=== PATIENT | male | born 1985 | race Caucasian/White ===

== ENCOUNTER 2017-12-05 10:42 | Emergency (ER) | payer SELFPAY ==
[~2017-12-05] VITALS: Ht 180.3 cm; Wt 68.2 kg
[2017-12-05 12:32] VITALS: BP 118/69
[2017-12-05] MEDS ORDERED: VALIUM5 MG PO (13:12)
[2017-12-05] MEDS ORDERED: TORADOL10 MG PO (13:12)
[2017-12-05] MEDS ORDERED: LIDODERM 5% P1 PATCH TD (13:12)
== END 2017-12-05 13:30 | disposition home or self-care (01) ==
LOC: EME 10:42
DX: S39.012A Strain of muscle, fascia and tendon of lower back, initial encounter (principal); X58.XXXA Exposure to other specified factors, initial encounter; M54.42 Lumbago with sciatica, left side; G89.29 Other chronic pain; M62.838 Other muscle spasm
CPT/HCPCS: 72131; 99281; 99284; J1885